=== PATIENT | female | born 1975 | race Caucasian/White ===

== ENCOUNTER → 2017-02-19 | Outpatient (CLI) | payer OTHER ==
--- NOTE | 2017-02-19 13:10 | US ---
EXAMINATION TYPE: US thyroid st tissue head/neck DATE OF EXAM: 02/19/2017 12:29 PM COMPARISON: NONE CLINICAL HISTORY: R22.1 Fullness of Neck. Goiter, history of thyroid biopsy and right thyroid nodule removed GLAND SIZE: Right Lobe: 1.4 x 0.8 x 0.4 cm Overall Parenchyma: homogenous Left Lobe: 5.0 x 1.7 x 1.5 cm Overall Parenchyma: heterogeneous Isthmus Thickness: 0.3 cm NODULES RIGHT: # of nodules measured on right: 0 LEFT: # of nodules measured on left: 2 1. 0.6 X 0.3 x 0.4 cm hypoechoic mixed nodule at the lower pole with well-defined margins. This nod ule is wider than tall and shows intranodular vascularity. Prior size: no previous 2. 2.5 X 1.0 x 1.7 cm hypoechoic solid nodule at the upper pole with poorly defined margins. This no dule is wider than tall and shows intranodular vascularity. Prior size: no previous ISTHMUS: # of nodules measured in the isthmus: 0 Heterogeneous left lobe with nodules described above, small right lobe following right thyroid nodule removed, bilateral neck scanned, no evidence of lymphadenopathy. IMPRESSION: Nonspecific thyroid nodularity. The need to biopsy should be made on a clinical basis.
== END | disposition home or self-care (01) ==
LOC: RADUSMAIN 12:02
PROVIDERS: ATTEND Family Medicine
DX: E04.2 Nontoxic multinodular goiter (principal)
CPT/HCPCS: 76536

== ENCOUNTER → 2017-05-11 | Outpatient (CLI) | payer OTHER ==
--- NOTE | 2017-05-11 23:09 | MR ---
EXAMINATION TYPE: MR cspine/lspine wo con DATE OF EXAM: 05/11/2017 COMPARISON: Lumbar spine 05/19/2015 HISTORY: Back Pain, Tingling, Headaches, Pain when Walking x 3 months TECHNIQUE: Multiplanar, multisequence imaging of the lumbar spine is performed without IV contrast. M ultiplanar multi echo imaging of the cervical spine was performed without contrast. FINDINGS: The cervical vertebra have normal alignment. Disc spaces are fairly normal. There is no spi nal stenosis. There are small posterior disc bulges at C3-4 C5-6 C6-7 without any significant impinge ment on the spinal canal. There is no spinal stenosis. There is no cervical paraspinal mass. Posterio r elements are intact. Cervical spinal cord has normal appearance. Brainstem is intact. The lumbar vertebra have normal alignment. Disc spaces are fairly normal. There are small anterior an d posterior disc herniations at L3-4 and L4-5. There is no spinal stenosis. There is developmentally adequate spinal canal. Neural foramina are fairly well-maintained. There is no compression fracture. Posterior elements are intact. There is no lumbar paraspinal mass. I see no focal bone destruction. T here are small anterior elbow to 3 disc herniation. 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 IMPRESSION: Negative MR scan of the cervical spine. Minimal disc bulging as above without evidence of herniation or spinal stenosis. Mild anterior and posterior disc bulges and herniation at L3-4 L4-5 without evidence of spinal stenos is. No fracture. No significant change compared to old exam.
== END | disposition home or self-care (01) ==
LOC: RADMRIMAIN 16:42
PROVIDERS: ATTEND Psychiatry & Neurology Pain Medicine
DX: M50.20 Other cervical disc displacement, unspecified cervical region (principal); M51.26 Other intervertebral disc displacement, lumbar region
CPT/HCPCS: 72141; 72148

== ENCOUNTER 2017-06-05 17:08 | Emergency (ER) | payer OTHER ==
[2017-06-05 17:37] VITALS: BP 123/74; PULSE 73; RESP 16; TEMP 98.8
--- NOTE | 2017-06-05 17:41 | ED ---
Skin/Abscess/FB HPI - General Chief complaint: Skin/Abscess/Foreign Body Stated complaint: insect bite Time Seen by Provider: 06/05/17 17:29 Source: patient, RN notes reviewed Mode of arrival: ambulatory Limitations: no limitations - History of Present Illness Initial comments: 41-year-old female presented emergency department to complaint of bite to her right calf. Patient states that she days ago. Patient states that there is bruised and slightly painful. Patient's concerned about possible infection. Patient had no fever no chills no paresthesias. Patient states she is taking the trash with her kids. Patient states that she felt something bite her leg and noticed that there was a red brad. Patient states his been bruising around it with no improvement. Patient states pain seems to be surrounding the area. - Related Data Previous Rx's Medication Instructions Recorded Acetaminophen-Codeine 300-30mg 1 tab PO Q4H PRN #20 tablet 01/16/16 [Tylenol #3] Ibuprofen [Motrin] 600 mg PO Q8HR PRN #30 tab 01/16/16 Sulfamethox-Tmp 800-160Mg [Bactrim 1 each PO Q12HR #20 tab 01/16/16 Ds] Sulfamethox-Tmp 800-160Mg [Bactrim 1 each PO Q12HR #20 tab 06/05/17 Ds] Allergies Allergy/AdvReac Type Severity Reaction Status Date / Time cephalexin monohydrate Allergy Unknown Verified 06/05/17 17:39 [From Keflex] Penicillins Allergy Unknown Verified 06/05/17 17:39 Review of Systems ROS Statement: Those systems with pertinent positive or pertinent negative responses have been documented in the HPI. ROS Other: All systems not noted in ROS Statement are negative. Past Medical History Past Medical History: No Reported History History of Any Multi-Drug Resistant Organisms: None Reported Past Surgical History: Breast Surgery, Section, Orthopedic Surgery Additional Past Surgical History / Comment(s): Alpesh shoulder surgery; Knee surgery; Goiter removed; Breast Augmentation; Uterine Ablation Past Psychological History: No Psychological Hx Reported Smoking Status: Former smoker Past Alcohol Use History: Occasional Past Drug Use History: None Reported General Exam Limitations: no limitations General appearance: alert, in no apparent distress Respiratory exam: Present: normal lung sounds bilaterally. Absent: respiratory distress, wheezes, rales, rhonchi, stridor Cardiovascular Exam: Present: regular rate, normal rhythm, normal heart sounds. Absent: systolic murmur, diastolic murmur, rubs, gallop, clicks Extremities exam: Present: other (Right calf there is some denies erythematous punctate lesion with surrounding ecchymosis and tenderness) Course Vital Signs 06/05/17 17:34 Temperature 98.8 F Pulse Rate 73 Respiratory 16 Rate Blood Pressure 123/74 O2 Sat by Pulse 98 Oximetry Medical Decision Making - Medical Decision Making 41-year-old female presents emergency department for right calf insect bite. There is some ecchymosis surrounding this so-called bite area. Patient is concerned about possible infection there is mild erythema in which she'll be started on antibiotics this time. We did discuss warm compresses and return parameters. Disposition Clinical Impression: Insect bite Disposition: HOME SELF-CARE Condition: Stable Instructions: Insect Bite or Sting (ED) Additional Instructions: Please return to the Emergency Department if symptoms worsen or any other concerns. Prescriptions: Sulfamethox-Tmp 800-160Mg [Bactrim Ds] 1 each PO Q12HR #20 tab Referrals: Lindsay Michelle MD [Primary Care Provider] - 1-2 days Time of Disposition: 17:41
== END 2017-06-05 17:44 | disposition home or self-care (01) ==
LOC: EC 17:08
DX: S80.861A Insect bite (nonvenomous), right lower leg, initial encounter (principal); Z87.891 Personal history of nicotine dependence; Z88.0 Allergy status to penicillin; Z88.1 Allergy status to other antibiotic agents; Z98.890 Other specified postprocedural states; W57.XXXA Bitten or stung by nonvenomous insect and other nonvenomous arthropods, initial encounter
CPT/HCPCS: 99282

== ENCOUNTER → 2017-07-04 | Outpatient (CLI) | payer OTHER ==
[2017-07-04 16:39] LABS: Rheumatoid Factor, Qnt <9 IU/mL (<12)
[2017-07-04 16:40] LABS: C Reactive Protein <5.0 mg/L (<10.0); Creatine Kinase 70 U/L (30-135)
[2017-07-05 01:37] LABS: ANA w/Reflex to Titer NEGATIVE (NEGATIVE)
== END | disposition home or self-care (01) ==
LOC: LABWHC1 14:22
PROVIDERS: ATTEND Psychiatry & Neurology Neurology
DX: M25.50 Pain in unspecified joint (principal)
CPT/HCPCS: 36415; 82550; 85652; 86038; 86140; 86225; 86431

== ENCOUNTER → 2017-07-04 | Outpatient (CLI) | payer OTHER ==
--- NOTE | 2017-07-05 07:57 | MM ---
Reason for exam: screening (asymptomatic). Baseline mammogram. History: Family history of breast cancer in maternal aunt at age 60. Retro-pectoral saline implants, 2010. Took hormonal contraceptives for 2 years. Physical Findings: Nurse did not find any significant physical abnormalities on exam. MG Screening Mammo Implant/CAD Bilateral CC, MLO, and ID view(s) were taken. There are scattered fibroglandular densities. There is no discrete abnormality. Subpectoral implants x 2. These results were verbally communicated with the patient and result sheet given to the patient on 07/04/17. ASSESSMENT: Benign, BI-RAD 2 RECOMMENDATION: Routine screening mammogram of both breasts in 1 year.
--- NOTE | 2017-07-05 08:10 | US ---
EXAMINATION TYPE: US transvaginal DATE OF EXAM: 07/04/2017 COMPARISON: US CLINICAL HISTORY: R10.2 Pelvic Pain. Intermittent left pelvic pain x years, LMP 8 years ago, uterine ablation 8 years ago, 7, para 4, history of 4 c-sections TECHNIQUE: Transvaginal (TV) only per physicians order Date of LMP: 8 years ago EXAM MEASUREMENTS: Uterus: 8.1 x 4.5 x 6.0 cm Endometrial Stripe: 0.4 cm Right Ovary: 3.6 x 1.7 x 2.0 cm Left Ovary: 3.2 x 2.2 x 2.5 cm 1. Uterus: heterogeneous with 1.8 x 1.8 x 2.1cm hypoechoic area within fundal portion, left fundal m yometrium: 2.0 x 1.7 x 2.4cm complex cystic area with 1.9 x 1.0 x 1.6cm hypoechoic structure within 2. Endometrium: limited visualization due to shadowing from scar 3. Right Ovary: multiple small simple appearing cysts with largest measuring 1.3cm 4. Left Ovary: multiple small simple appearing cysts with largest measuring 1.3cm 5. Bilateral Adnexa: wnl 6. Posterior cul-de-sac: wnl IMPRESSION: Multiple probable uterine leiomyomas one of which impresses upon the endometrial cavity. Some of these probable leiomyomas are complex and further characterization with enhanced pelvic MRI c ould be performed if there is consideration for embolization to assess for leiomyoma enhancement. Alt ernatively if MR is forgone, short-term follow-up pelvic ultrasound is recommended in 3-6 months to e nsure no interval growth given the complexity.
== END | disposition home or self-care (01) ==
LOC: RADMAMWWP 14:14
PROVIDERS: ATTEND Obstetrics & Gynecology
DX: Z12.31 Encounter for screening mammogram for malignant neoplasm of breast (principal); R10.2 Pelvic and perineal pain
CPT/HCPCS: 76830; G0202

== ENCOUNTER → 2017-11-29 | Outpatient (CLI) | payer OTHER ==
--- NOTE | 2017-11-29 23:20 | MR ---
EXAMINATION TYPE: MR hip LT wo con DATE OF EXAM: 11/29/2017 COMPARISON: NONE HISTORY: Left hip pain and Limited ROM x2 years, worse the last 6 months Standard multiplanar, multisequence MRI departmental protocol Multiplanar, multisequence images of the pelvis and left hip were acquired. FINDINGS: The pelvic ring appears intact. There is mild symmetric acetabular spurring. Proximal femur s are intact. There is no evidence of a fracture. There is no sign of avascular necrosis. There is no evidence of any significant hip joint effusion. I see no focal bone destruction. There is no sign of a pelvic mass. There is a tiny amount of free fluid in the pelvis on the right side. IMPRESSION: There is a tiny amount of free fluid in the pelvis on the right sided could be physiologic. Minimal acetabular spurring. No evidence of hip dysplasia or fracture. No evidence of avascular necro sis.
== END | disposition home or self-care (01) ==
LOC: RADMRIMAIN 20:55
PROVIDERS: ATTEND Psychiatry & Neurology Neurology
DX: M25.552 Pain in left hip (principal)

== ENCOUNTER → 2019-01-20 | Outpatient (CLI) | payer OTHER ==
--- NOTE | 2019-01-21 09:16 | MM ---
Reason for exam: screening (asymptomatic). Last mammogram was performed 1 year and 7 months ago. History: Family history of breast cancer in maternal aunt at age 60. Retro-pectoral saline implants, 2010. Took hormonal contraceptives for 2 years. Physical Findings: A clinical breast exam by your physician is recommended on an annual basis and results should be correlated with mammographic findings. MG Screening Mammo Implant/CAD Bilateral CC and MLO view(s) were taken. ID view(s) were taken of the right breast. Prior study comparison: July 04, 2017, bilateral MG screening mammo implant/CAD. There are scattered fibroglandular densities. No suspicious calcifications are seen. Left implant is ruptured. Right implant is intact. No significant changes when compared with prior studies. ASSESSMENT: Benign, BI-RAD 2 RECOMMENDATION: Routine screening mammogram of both breasts in 1 year.
== END | disposition home or self-care (01) ==
LOC: RADMAMWWP 15:37
PROVIDERS: ATTEND Family Medicine
DX: Z12.31 Encounter for screening mammogram for malignant neoplasm of breast (principal)
CPT/HCPCS: 77067

== ENCOUNTER → 2019-03-12 | Outpatient (CLI) | payer OTHER ==
--- NOTE | 2019-03-13 17:06 | BD ---
EXAMINATION TYPE: Axial Bone Density DATE OF EXAM: 03/12/2019 COMPARISON: NONE CLINICAL HISTORY: Height: 5 FT Weight: 149 FRAX RISK QUESTIONS: History of Fracture in Adulthood: YES Secondary Osteoporosis: 3. Menopause before 45: NA RISK FACTORS HISTORY OF: Active: NO Postmenopausal woman: ABLATION 8-9 YEARS AGO MEDICATIONS: Additional Medications: GABAPENTIN Additional History: EXAM MEASUREMENTS: Bone mineral densitometry was performed using the [employer]. Bone mineral density as measured about the Lumbar spine is: ----- L1-L4(G/cm2): 1.187 T Score Values are as follows: ----- L2: -0.6 ----- L3: 0.1 ----- L4: 0.2 ----- L1-L4: 0.1 BASELINE Bone mineral density about the R hip (g/cm2): 1.020 Bone mineral density about the L hip (g/cm2): 1.095 T Score values are as follows: -----R Neck: -0.1 -----L Neck: 0.4 -----R Total: 0.8 -----L Total: 1.3 BASELINE IMPRESSION: Normal (Values between +1 and -1 indicate normal bone mass). Consider repeating this study in 5 year s or sooner if there is some new clinical indication. NOTE: T-SCORE=SD OF THE YOUNG ADULT MEAN.
== END | disposition home or self-care (01) ==
LOC: RADBDWWP 16:15
PROVIDERS: ATTEND Internal Medicine
DX: Z78.0 Asymptomatic menopausal state (principal); Z88.1 Allergy status to other antibiotic agents
CPT/HCPCS: 77080

== ENCOUNTER → 2024-07-14 | Outpatient (CLI) | payer OTHER ==
[2024-07-15 03:00] LABS: ALT 15 U/L (8-44); AST 15 U/L (13-35); Albumin 4.6 g/dL (3.8-4.9); Albumin/Globulin Ratio 1.77 Ratio (1.60-3.17); Alkaline Phosphatase 85 U/L (41-126); BUN/Creat Ratio 24.57 Ratio (12.00-20.00); Blood Urea Nitrogen 17.2 mg/dL (9.0-27.0); Calcium 8.4 mg/dL (8.7-10.3); Carbon Dioxide 25.2 mmol/L (21.6-31.8); Chloride 103 mmol/L (96-109); Globulin 2.6 g/dL (1.6-3.3); Glucose 85 mg/dL (70-110); Potassium 4.3 mmol/L (3.5-5.5); Sodium 140 mmol/L (135-145); Total Bilirubin <0.2 mg/dL (0.3-1.2); Total Protein 7.2 g/dL (6.2-8.2)
== END | disposition home or self-care (01) ==
LOC: LABWHC1 14:56
PROVIDERS: ATTEND Internal Medicine
DX: E89.2 Postprocedural hypoparathyroidism (principal); E03.9 Hypothyroidism, unspecified; E55.9 Vitamin D deficiency, unspecified
CPT/HCPCS: 36415; 80053; 82306; 83970; 84439; 84443